=== PATIENT | female | born 1975 | race Two or more races ===

== ENCOUNTER 2024-10-30 17:13 | Emergency (ER) | payer OTHER ==
[~2024-10-30] VITALS: Ht 162.6 cm; Wt 61.2 kg
[2024-10-30 19:08] LABS: BASO % 0.5 % (0.1-1.2); EOS # 0.01 (0.04-0.54); EOS % 0.3 % (0.7-7.0); LYMPH # 0.58 (1.18-3.74); LYMPH % 14.5 % (19.3-53.1); MEAN PLATELET VOLUME 9.60 fl (9.4-12.4); MONO # 0.73 (0.24-0.82); NEUT # 2.65 (1.56-6.13); NEUT % 66.4 % (34.0-71.1); RED CELL DISTRIBUTION WIDTH 14.2 % (11.6-14.4)
[2024-10-30 19:22] LABS: ALT/SGPT 23.0 U/L (12-78); AST/SGOT 17.0 U/L (15-37); BILIRUBIN TOTAL 0.96 mg/dL (0.3-1.2); BUN CREA RATIO 19.0 (7.0-25.0); CREATININE SERUM 0.77 mg/dL (0.55-1.02); GFR 79.03; GLOBULINA 4.2 G/DL (2.4-3.5); GLUCOSE FASTING 98.0 mg/dL (65-100); OSMOLALITY SERUM 278.0 MOSM/KG (275-295)
[2024-10-30 19:42] LABS: MONO % 18.3 % (4.7-12.5)
[2024-10-30] MEDS ORDERED: METHYLPREDNISOLONE SOD SUCC 125 MG VIAL ONE (21:28)
[2024-10-30] MEDS ORDERED: PROMETHAZINE HCL 25 MG/ML AMPUL ONE (21:28)
[2024-10-30] MEDS ORDERED: PROMETHAZINE HCL 25 MG/ML AMPUL IM ONE (21:30)
[2024-10-30] MEDS ORDERED: WATER FOR INJ.,BACTERIOSTATIC 30 ML VIAL IJ ONE (21:30)
[2024-10-30] MEDS ORDERED: METHYLPREDNISOLONE SOD SUCC 125 MG VIAL IM ONE (21:30)
[2024-10-30] MEDS ORDERED: ONDANSETRON 4 MG TAB.RAPDIS PO ONE ×2 (21:51→22:00)
== END 2024-10-30 21:47 | disposition home or self-care (01) ==
LOC: ER 17:13
PROVIDERS: General Practice
DX: R20.0 Anesthesia of skin (principal); T40.2X5A Adverse effect of other opioids, initial encounter; Y92.89 Other specified places as the place of occurrence of the external cause; R47.81 Slurred speech; K50.90 Crohn's disease, unspecified, without complications; Z88.8 Allergy status to other drugs, medicaments and biological substances